=== PATIENT | female | born 1970 | race Caucasian/White ===

== ENCOUNTER → 2018-02-11 14:30 | Outpatient (CLI) | payer OTHER, SELFPAY ==
[2018-02-17 16:08] LABS: HPV Reflexed? NOT INDICATED
== END ==
PROVIDERS: Visit Provider Obstetrics & Gynecology
DX: Z12.4 Encounter for screening for malignant neoplasm of cervix (principal)
CPT/HCPCS: 88175; G0145

== ENCOUNTER → 2018-02-21 13:57 | Outpatient (CLI) | payer OTHER, SELFPAY ==
[2015-03-20 11:36] VITALS: BMI 22.7
--- NOTE | 2018-02-21 14:01 | BI_ITS ---
MAMMOGRAPHY - BILATERAL DIAGNOSTIC REASON FOR EXAM: Female, 47 years old. Palpable abnormality at the 2:00 position of the left breast PERTINENT HISTORY: Non-contributory. TECHNIQUE: Digital bilateral breast lida (3D mammographic acquisition) in the CC and MLO projections. 2-D mediolateral oblique (MLO) and craniocaudad (CC) views of both breasts were obtained. CAD: Full Field Digital Mammography with Computer Added Detection was performed. COMPARISON: Comparison is made with prior study dated January 26, 2017. FINDINGS: Breast Composition: The breasts are extremely dense, which lowers the sensitivity of mammography. There is a 2.2 cm x 2.5 cm nodular density in the upper lateral portion of the left breast. This corresponds with palpable abnormality. I also suspect a 3 cm x 2.1 cm nodular density in the upper lateral aspect of the right breast. Prior sonogram demonstrated this to be a cyst. No other significant abnormalities are identified. BI/DIAG MAMM W/CAD, BILAT IMPRESSION: The papillary abnormality in the left breast corresponds to a 2.2 cm x 2.5 cm nodular density. Correlation with ultrasound is recommended. ASSESSMENT CATEGORY: BIRADS Category 0: Incomplete. Need additional imaging evaluation. A letter regarding these results will be sent to the patient by the facility within 30 days. Approximately 10% of breast cancers are not detected by mammography. A normal mammogram should not delay biopsy of a clinically suspicious abnormality. Electronically Signed: Bridger Garcia MD at 11:24 EST Tel [phone], Service support ,
--- NOTE | 2018-02-21 14:03 | US_ITS ---
STUDY: ULTRASOUND BREAST - LEFT REASON FOR EXAM: Female, 47 years old. Palpable lump left breast. TECHNIQUE: Axial and longitudinal images of the LEFT breast were performed with a high resolution ultrasound transducer. COMPARISON: Comparison is made with prior mammogram done earlier in the day. FINDINGS: LEFT Breast: At the 2:00 position of the breast at 3 cm from the nipple, there is a 2.5 cm x 2.3 cm x 1.1 cm cyst. Adjacent to this, there is also evidence of a 0.5 cm x 0.5 cm x 0.5 cm cyst. US/Breast Limited Unilateral IMPRESSION: 2.5 cm x 2.3 cm x 1.1 cm cyst is present at the 2:00 position of the breast at 3 cm from nipple. This corresponds to the palpable abnormality. ASSESSMENT CATEGORY: BIRADS Category 2: Benign. A letter regarding these results will be sent to the patient by the facility within 30 days. Electronically Signed: Bridger Garcia MD at 11:16 EST Tel [phone], Service support ,
== END ==
PROVIDERS: Family Provider Family Medicine; PCP Family Medicine; Referring Provider Obstetrics & Gynecology; Visit Provider Obstetrics & Gynecology
DX: N63.21 Unspecified lump in the left breast, upper outer quadrant (principal); N63.10 Unspecified lump in the right breast, unspecified quadrant; R92.2 Inconclusive mammogram
CPT/HCPCS: 76642; 77062; 77066; G0279

== ENCOUNTER → 2019-02-17 10:07 | Outpatient (CLI) | payer OTHER, SELFPAY ==
[2015-03-20 11:36] VITALS: BMI 22.7
[2019-02-21 03:07] LABS: Age Gdln ACOG Testing 30-65 (.)
[2019-02-21 15:46] LABS: HPV APTIMA, High Risk Negative (Negative); HPV Reflexed? YES, CHARGE PATIENT
== END ==
PROVIDERS: Visit Provider Obstetrics & Gynecology
DX: Z11.4 Encounter for screening for human immunodeficiency virus [HIV] (principal)
CPT/HCPCS: 87624; 88175; G0145

== ENCOUNTER → 2019-03-03 09:21 | Outpatient (CLI) | payer OTHER, SELFPAY ==
[2015-03-20 11:36] VITALS: BMI 22.7
--- NOTE | 2019-03-03 09:35 | BI_ITS ---
MAMMOGRAPHY - BILATERAL DIAGNOSTIC REASON FOR EXAM: Female, 48 years old. Right breast lump. PERTINENT HISTORY: Non-contributory. TECHNIQUE: Digital bilateral breast lida (3D mammographic acquisition) in the CC and MLO projections. 2-D mediolateral oblique (MLO) and craniocaudad (CC) views of both breasts were obtained. CAD: Full Field Digital Mammography with Computer Added Detection was performed. COMPARISON: Comparison is made with prior examination dated February 21, 2018. FINDINGS: Breast Composition: The breasts are extremely dense, which lowers the sensitivity of mammography. There are no dominant masses or suspicious calcifications. The palpable abnormality corresponds to a 3.7 cm x 3 cm well-defined nodule in the retroareolar region of the right breast. This also evidence of a 3.3 cm x 1.8 cm well-defined nodule in the upper outer aspect of the left breast. These have slightly increased in size as compared to prior study. Correlation with ultrasound is recommended. No other significant abnormalities are identified. BI/DIAG MAMM W/CAD, BILAT IMPRESSION: Bilateral breast nodules as described. Correlation with ultrasound is recommended. ASSESSMENT CATEGORY: BIRADS Category 0: Incomplete. Need additional imaging evaluation. A letter regarding these results will be sent to the patient by the facility within 30 days. Approximately 10% of breast cancers are not detected by mammography. A normal mammogram should not delay biopsy of a clinically suspicious abnormality. Pending Final Proof Editing
--- NOTE | 2019-03-03 10:23 | US_ITS ---
STUDY: ULTRASOUND BREAST - RIGHT REASON FOR EXAM: Female, 48 years old. Palpable lump in the right breast. TECHNIQUE: Axial and longitudinal images of the RIGHT breast were performed with a high resolution ultrasound transducer. # OF IMAGES: 33 COMPARISON: Comparison is made with prior mammogram done earlier today. FINDINGS: RIGHT Breast: The palpable abnormality corresponds to a 5 cm x 4.9 cm x 1.5 cm cyst. This is at the 10:00 position of the breast at 2 cm from the nipple. Multiple smaller cysts are also seen scattered throughout the breast. US/Breast Limited Unilateral IMPRESSION: The palpable abnormality corresponds to a 5 cm x 4.9 cm x 1.5 cm cyst. Multiple smaller cysts are seen throughout the breast as well. ASSESSMENT CATEGORY: BIRADS Category 2: Benign. A letter regarding these results will be sent to the patient by the facility within 30 days. Electronically Signed: Bridger Garcia, at 15:33 EST , Service support ,
== END ==
PROVIDERS: Family Provider Family Medicine; PCP Family Medicine; Referring Provider Obstetrics & Gynecology; Visit Provider Obstetrics & Gynecology
DX: N63.10 Unspecified lump in the right breast, unspecified quadrant (principal)
CPT/HCPCS: 76642; 77062; 77066; G0279

== ENCOUNTER → 2019-11-17 09:13 | Outpatient (CLI) | payer OTHER, SELFPAY ==
[2019-11-09 14:58] VITALS: BMI 22.7
--- NOTE | 2019-11-17 09:13 | BI_ITS ---
MAMMOGRAPHY - BILATERAL DIAGNOSTIC REASON FOR EXAM: Female, 48 years old. Right breast pain. Multiple cysts. PERTINENT HISTORY: Non-contributory. TECHNIQUE: Digital bilateral breast lida (3D mammographic acquisition) in the CC and MLO projections. 2-D mediolateral oblique (MLO) and craniocaudad (CC) views of both breasts were obtained. CAD: Full Field Digital Mammography with Computer Added Detection was performed. COMPARISON: Comparison is made with prior examination dated 03/03/2019 and 02/21/2018. FINDINGS: Breast Composition: The breasts are extremely dense, which lowers the sensitivity of mammography. Once again, dominant nodular densities are seen in both breasts. These have increased in size since prior study. There is a dominant retroareolar nodule in the right breast measuring 5.2 cm x 4.7 cm. Correlation with ultrasound is recommended. No other significant abnormalities are identified. BI/DIAG MAMM W/CAD, BILAT IMPRESSION: Increasing bilateral breast nodules more prominent on the right side as described. Correlation with ultrasound of both breasts is recommended for further evaluation. ASSESSMENT CATEGORY: BIRADS Category 0: Incomplete. Need additional imaging evaluation. A letter regarding these results will be sent to the patient by the facility within 30 days. Approximately 10% of breast cancers are not detected by mammography. A normal mammogram should not delay biopsy of a clinically suspicious abnormality. Electronically Signed: Bridger Garcia, at 14:00 EDT , Service support ,
--- NOTE | 2019-11-17 09:13 | US_ITS ---
STUDY: ULTRASOUND BREAST - RIGHT REASON FOR EXAM: Female, 48 years old. Palpable lump in the right breast. TECHNIQUE: Axial and longitudinal images of the RIGHT breast were performed with a high resolution ultrasound transducer. # OF IMAGES: 61 COMPARISON: Comparison is made with prior mammograms in earlier in the day and prior sonogram of the right breast dated 03/03/2019. FINDINGS: RIGHT Breast: Once again, multiple benign cysts are seen throughout the right breast. The largest cyst is at the 10 o''clock position of the breast at 2 cm from nipple and measures 5.5 cm x 4.3 cm x 1.7 cm. IMPRESSION: Multiple cysts. Mild increase in size of the dominant cyst at the 10 o''clock position of the breast at 2 cm from the nipple. ASSESSMENT CATEGORY: BIRADS Category 2: Benign. A letter regarding these results will be sent to the patient by the facility within 30 days. Electronically Signed: Bridger Garcia, at 10:53 EDT , Service support , STUDY: ULTRASOUND BREAST - LEFT REASON FOR EXAM: Female, 48 years old. Palpable lump left breast. TECHNIQUE: Axial and longitudinal images of the LEFT breast were performed with a high resolution ultrasound transducer. # OF IMAGES: 61 COMPARISON: Comparison is made with prior ultrasound of the left breast dated 02/21/2018 and prior mammogram done earlier today. FINDINGS: LEFT Breast: Once again, multiple cysts are seen. The largest cyst is at the 1 o''clock position of the breast at 2 cm from the nipple and measures 3.1 cm x 2.9 cm x 1.3 cm. US/Breast Limited Unilateral IMPRESSION: Multiple breast cysts. The largest cyst is at the 1 o''clock position breast at 2 cm from nipple. This has increased slightly in size as compared to prior study. ASSESSMENT CATEGORY: BIRADS Category 2: Benign. A letter regarding these results will be sent to the patient by the facility within 30 days. Electronically Signed: Bridger Garcia, at 10:54 EDT , Service support ,
== END ==
PROVIDERS: PCP Family Medicine; Referring Provider Obstetrics & Gynecology; Visit Provider Obstetrics & Gynecology
DX: N63.10 Unspecified lump in the right breast, unspecified quadrant (principal); N63.20 Unspecified lump in the left breast, unspecified quadrant; N60.01 Solitary cyst of right breast
CPT/HCPCS: 76642; 77062; 77066; G0279

== ENCOUNTER → 2020-05-03 | Outpatient (CLI) | payer OTHER, SELFPAY ==
[2020-05-03 11:33] VITALS: BMI 24.8
[2020-05-09 10:50] LABS: HPV APTIMA, High Risk Negative (Negative)
== END | disposition home or self-care (01) ==
LOC: LABSPEC 16:27
PROVIDERS: PCP Family Medicine; Referring Provider Obstetrics & Gynecology; Visit Provider Obstetrics & Gynecology
DX: Z12.4 Encounter for screening for malignant neoplasm of cervix (principal)
CPT/HCPCS: 87624; 88175; G0145

== ENCOUNTER → 2020-05-10 07:24 | Outpatient (CLI) | payer OTHER, SELFPAY ==
[2020-05-03 11:33] VITALS: BMI 24.8
--- NOTE | 2020-05-10 07:52 | US_ITS ---
STUDY: ULTRASOUND BREAST - RIGHT REASON FOR EXAM: Female, 49 years old. Bilateral breast cysts. TECHNIQUE: Axial and longitudinal images of the RIGHT breast were performed with a high resolution ultrasound transducer. # OF IMAGES: 100 COMPARISON: Comparison is made with prior ultrasound the right breast dated 11/17/2019. FINDINGS: RIGHT Breast: Once again, multiple cysts are seen in the retroareolar region of the breast. A dominant cyst measuring 4.1 cm by 4.4 cm x 1.8 cm is seen. This has decreased slightly in size as compared to prior study. IMPRESSION: Multiple breast cysts. ASSESSMENT CATEGORY: BIRADS Category 2: Benign. A letter regarding these results will be sent to the patient by the facility within 30 days. Electronically Signed: Bridger Garcia MD at 14:30 EDT , Service support , STUDY: ULTRASOUND BREAST - LEFT REASON FOR EXAM: Female, 49 years old. Multiple breast cysts. TECHNIQUE: Axial and longitudinal images of the LEFT breast were performed with a high resolution ultrasound transducer. # OF IMAGES: 100 COMPARISON: Comparison is made with prior sonogram dated 11/17/2019. FINDINGS: LEFT Breast: Once again, multiple cysts are seen. The largest measures 3.2 cm x 2.6 cm x 1.5 cm. This is at the 2 o''clock position of the breast at 2 cm from nipple. This is essentially unchanged. US/Breast Limited Unilateral IMPRESSION: Stable breast cysts. ASSESSMENT CATEGORY: BIRADS Category 2: Benign. A letter regarding these results will be sent to the patient by the facility within 30 days. Electronically Signed: Bridger Garcia MD at 14:30 EDT , Service support ,
[2020-05-10 09:19] LABS: Cholesterol 208 mg/dL (200); Glucose 90 mg/dL (74-106); High Density Lipoprotein 84 mg/dL; Thyroid Stim Hormone (TSH) 7.75 uIU/mL (0.358-3.74); Triglycerides 85 mg/dL; Very Low Density Lipoprotein 17 mg/dL (5-40)
[2020-05-10 09:24] LABS: Vitamin D,25 Hydroxy 44.3 ng/mL
== END ==
PROVIDERS: PCP Family Medicine; Referring Provider Obstetrics & Gynecology; Visit Provider Obstetrics & Gynecology
DX: Z01.411 Encounter for gynecological examination (general) (routine) with abnormal findings (principal); N60.12 Diffuse cystic mastopathy of left breast; N60.11 Diffuse cystic mastopathy of right breast; N60.02 Solitary cyst of left breast; N60.01 Solitary cyst of right breast
CPT/HCPCS: 36415; 76642; 80061; 82306; 82947; 84443

== ENCOUNTER 2021-05-14 08:56 | Outpatient (CLI) | payer OTHER, SELFPAY ==
--- NOTE | 2021-05-14 09:03 | US_ITS ---
STUDY: ULTRASOUND BREAST - RIGHT REASON FOR EXAM: Female, 50 years old. History of breast cysts. TECHNIQUE: Axial and longitudinal images of the RIGHT breast were performed with a high resolution ultrasound transducer. # OF IMAGES: 105 COMPARISON: Comparison is made with prior mammogram done earlier today as well as prior sonogram dated 05/10/2020. FINDINGS: RIGHT Breast: Once again, multiple cysts are seen in the right breast. The largest cyst measures 4.2 cm x 4.9 cm x 2.8 cm. This is at the 10 o''clock position of the breast at 3 cm from the nipple. IMPRESSION: Multiple breast cysts. ASSESSMENT CATEGORY: BIRADS Category 2: Benign. A letter regarding these results will be sent to the patient by the facility within 30 days. Electronically Signed: Bridger Garcia MD at 12:28 EDT , STUDY: ULTRASOUND BREAST - LEFT REASON FOR EXAM: Female, 50 years old. Breast cysts TECHNIQUE: Axial and longitudinal images of the LEFT breast were performed with a high resolution ultrasound transducer. # OF IMAGES: 105 COMPARISON: Comparison is made with prior mammogram done earlier today as well as prior sonogram of the left breast dated 05/10/2020. FINDINGS: LEFT Breast: Multiple cysts are once again seen. The largest cyst measures 3.4 cm x 3.1 cm x 2 cm. This is at the 2 o''clock position breast at 3 cm from the nipple. US/Breast Complete Bilateral IMPRESSION: Multiple cysts are seen in the left breast. ASSESSMENT CATEGORY: BIRADS Category 2: Benign. A letter regarding these results will be sent to the patient by the facility within 30 days. Electronically Signed: Bridger Garcia MD at 12:29 EDT ,
--- NOTE | 2021-05-14 09:04 | BI_ITS ---
MAMMOGRAPHY - BILATERAL DIAGNOSTIC REASON FOR EXAM: Female, 50 years old. Bilateral breast lumps. PERTINENT HISTORY: Non-contributory. TECHNIQUE: Digital bilateral breast lida (3D mammographic acquisition) in the CC and MLO projections. 2-D mediolateral oblique (MLO) and craniocaudad (CC) views of both breasts were obtained. CAD: Full Field Digital Mammography with Computer Added Detection was performed. COMPARISON: Comparison is made with prior examination dated 11/17/2019 and 03/03/2019. FINDINGS: Breast Composition: The breasts are extremely dense, which lowers the sensitivity of mammography. Once again, there are bilateral breast nodules more prominent in the right breast. The previously seen well-defined nodular density in the left breast has increased in size. Correlation with ultrasound is recommended. No cluster microcalcification is seen. No other significant abnormalities are identified. BI/DIAG MAMM W/CAD, BILAT IMPRESSION: Bilateral breast nodules with increase size in the left breast. Correlation with ultrasound is recommended. ASSESSMENT CATEGORY: BIRADS Category 0: Incomplete. Need additional imaging evaluation. A letter regarding these results will be sent to the patient by the facility within 30 days. Approximately 10% of breast cancers are not detected by mammography. A normal mammogram should not delay biopsy of a clinically suspicious abnormality. Electronically Signed: Bridger Garcia MD at 10:20 EDT ,
== END 2021-05-14 23:59 | disposition home or self-care (01) ==
PROVIDERS: PCP Family Medicine; Visit Provider Obstetrics & Gynecology
DX: N60.11 Diffuse cystic mastopathy of right breast (principal); N60.12 Diffuse cystic mastopathy of left breast; R92.8 Other abnormal and inconclusive findings on diagnostic imaging of breast
CPT/HCPCS: 76641; 77062; 77066; G0279

== ENCOUNTER → 2022-05-22 | Outpatient (CLI) | payer OTHER, SELFPAY ==
--- NOTE | 2022-05-22 13:54 | US_ITS ---
STUDY: ULTRASOUND BREAST - RIGHT REASON FOR EXAM: Female, 51 years old. Palpable lumps in both breasts. TECHNIQUE: Axial and longitudinal images of the RIGHT breast were performed with a high resolution ultrasound transducer. # OF IMAGES: 57 COMPARISON: Comparison is made with prior mammogram done earlier in the day and prior sonogram dated May 14, 2021. FINDINGS: RIGHT Breast: The upper outer quadrant of the right breast was examined by ultrasound. Multiple cysts are seen. The largest cyst measures 3.6 cm x 4 cm x 2.5 cm. This is at the 10:00 position of the breast at 2 cm from the nipple. There is also evidence of a 2 cm x 2 cm x 1.4 cm cyst with low level debris along its dependent portion of the plantar position the breast at 1 cm from nipple. IMPRESSION: Multiple cysts. The dominant cyst as decrease in size as compared to prior study. ASSESSMENT CATEGORY: BIRADS Category 2: Benign. A letter regarding these results will be sent to the patient by the facility within 30 days. Electronically Signed: Bridger Garcia MD at 15:11 EDT , STUDY: ULTRASOUND BREAST - LEFT REASON FOR EXAM: Female, 51 years old. Palpable lumps in the axillary region. TECHNIQUE: Axial and longitudinal images of the LEFT breast were performed with a high resolution ultrasound transducer. # OF IMAGES: 57 COMPARISON: Comparison is made with prior sonogram dated May 14, 2021 and prior sonogram done earlier today. FINDINGS: LEFT Breast: Multiple cysts are seen in the upper outer quadrant. The largest cyst measures 1.8 cm x 1.6 cm x 1.3 cm. This is at the 2:00 position of the breast at 1 cm from the nipple. This has decreased in size as compared to prior study. US/Breast Limited Unilateral IMPRESSION: Cysts are seen in the upper-outer quadrant of the left breast. The largest cyst measures 1.8 cm x 1.6 cm x 1.3 cm. This has decreased in size as compared to prior study. ASSESSMENT CATEGORY: BIRADS Category 2: Benign. A letter regarding these results will be sent to the patient by the facility within 30 days. Electronically Signed: Bridger Garcia MD at 15:13 EDT ,
--- NOTE | 2022-05-22 13:54 | BI_ITS ---
MAMMOGRAPHY - BILATERAL DIAGNOSTIC REASON FOR EXAM: Female, 51 years old. Bilateral breast lumps. PERTINENT HISTORY: Non-contributory. Past history of melanoma of the lower extremity. TECHNIQUE: Digital bilateral breast lida (3D mammographic acquisition) in the CC and MLO projections. 2-D mediolateral oblique (MLO) and craniocaudad (CC) views of both breasts were obtained. CAD: Full Field Digital Mammography with Computer Added Detection was performed. COMPARISON: Comparison is made with prior mammogram dated May 14, 2021 and November 17, 2019. FINDINGS: Breast Composition: The breasts are extremely dense, which lowers the sensitivity of mammography. Once again, bilateral breast nodules are seen in both upper outer quadrants of the breasts more prominent on the right side. Targeted ultrasound correlation is recommended. No other significant abnormalities are identified. BI/DIAG MAMM W/CAD, BILAT IMPRESSION: Bilateral breast nodules seen in both upper lateral quadrant of the breasts. Correlation with ultrasound is recommended. ASSESSMENT CATEGORY: BIRADS Category 0: Incomplete. Need additional imaging evaluation. A letter regarding these results will be sent to the patient by the facility within 30 days. Approximately 10% of breast cancers are not detected by mammography. A normal mammogram should not delay biopsy of a clinically suspicious abnormality. Electronically Signed: Bridger Garcia MD at 14:59 EDT ,
== END | disposition home or self-care (01) ==
PROVIDERS: PCP Family Medicine; Visit Provider Advanced Practice Midwife
DX: N63.25 Unspecified lump in the left breast, overlapping quadrants (principal); N63.21 Unspecified lump in the left breast, upper outer quadrant; N60.11 Diffuse cystic mastopathy of right breast; N60.12 Diffuse cystic mastopathy of left breast
CPT/HCPCS: 76642; 77062; 77066; G0279

== ENCOUNTER → 2022-06-09 | Outpatient (CLI) | payer OTHER, SELFPAY ==
[2022-06-09 11:24] LABS: Absolute Lymphocyte Count 1.49 X10^3/uL (0.83-4.51); Absolute Neutrophil Count 4.7 X10^3/uL (2.0-7.7); Basophil# 0.05 X10^3/uL; Basophil% 0.7 % (0-1); Eosinophil# 0.17 X10^3/uL; Eosinophils% 2.5 % (0-5); Hematocrit 43.7 % (37-47); Hemoglobin 14.1 g/dL (12.0-15.0); Lymphocyte # 1.49 X10^3/ul (0.83-4.51); Mean Corp Hgb Conc 32.3 g/dL (32-36); Mean Corpuscular Hgb 29.9 pg (27.0-32.0); Mean Corpuscular Volume 92.8 fL (81-99); Mean Platelet Vol. 10.4 fl (6.2-12.0); Monocyte# 0.36 X10^3/uL; Monocyte% 5.3 % (0-10); NRBC Flagged by Analyzer 0 % (0-5); Neutrophil # 4.67 X10^3/uL (2.7-7.7); Neutrophil % 69.1 % (47-70); Platelet Count 271 K/mm3 (150-450); RBC Distribution Width CV 13.3 % (11.6-14.6); RBC Distribution Width SD 45.8 fl (35.1-43.9); Red Blood Count 4.71 M/mm3 (4.2-5.4); White Blood Count 6.8 K/mm3 (4.4-11.0)
[2022-06-09 12:09] LABS: ALB/GLOB Ratio 1.1 RATIO (0.9-2.4); AST(SGOT) 16 U/L (15-37); Alanine Aminotransfer ALT/SGPT 20 U/L (13-56); Albumin, Serum 3.7 g/dL (3.2-5.0); Alkaline Phosphatase 51 U/L (45-117); Anion Gap 2 (5-15); BUN 15 mg/dL (7-18); BUN/Creat Ratio 22.3 RATIO (10-20); Calcium,Total 8.6 mg/dL (8.5-10.1); Chloride 108 mmol/L (98-107); Cholesterol 200 mg/dL (200); Creatinine, Serum 0.67 mg/dL (0.55-1.02); EST Glomerular Filtration Rate 98 mL/min (>60); Est Glom Filt Rate - Afr Amer 119 mL/min (>60); Globulin 3.5 g/dL (2.2-4.2); Glucose 94 mg/dL (74-106); High Density Lipoprotein 69 mg/dL; Protein, Total 7.2 g/dL (6.4-8.2); Sodium Level 136 mmol/L (136-145); Thyroid Stim Hormone (TSH) 5.26 uIU/mL (0.358-3.74); Triglycerides 75 mg/dL; Very Low Density Lipoprotein 15 mg/dL (5-40)
== END | disposition home or self-care (01) ==
LOC: LAB 09:46
PROVIDERS: PCP Family Medicine; Referring Provider Advanced Practice Midwife; Visit Provider Advanced Practice Midwife
DX: Z01.419 Encounter for gynecological examination (general) (routine) without abnormal findings (principal); Z13.1 Encounter for screening for diabetes mellitus; Z13.29 Encounter for screening for other suspected endocrine disorder
CPT/HCPCS: 36415; 80053; 80061; 84443; 85025

== ENCOUNTER → 2023-06-04 | Outpatient (CLI) | payer OTHER, SELFPAY ==
--- NOTE | 2023-06-04 09:38 | BI_ITS ---
MAMMOGRAPHY - BILATERAL SCREENING REASON FOR EXAM: Female, 52 years old. Routine annual screening examination. PERTINENT HISTORY: Non-contributory. TECHNIQUE: Digital bilateral breast maddy (3D mammographic acquisition) in the CC and MLO projections. 2-D mediolateral oblique (MLO) and craniocaudad (CC) views of both breasts were obtained. CAD: Full Field Digital Mammography with Computer Added Detection was performed. COMPARISON: Comparison is made with prior study dated May 14, 2021 and May 22, 2022. FINDINGS: Breast Composition: The breasts are extremely dense, which lowers the sensitivity of mammography. Once again, there are bilateral well-defined breast nodules more prominent in the upper lateral aspect of the left breast. These were demonstrated to be cysts on prior sonogram. The largest nodule in the right breast measures 2.5 cm x 3.1 cm. No other significant abnormalities are identified. There has been no significant change since the prior study. BI/SCRN MAMM (CAD)W/MADDY BILAT IMPRESSION: Stable bilateral screening mammogram. Yearly follow-up mammogram recommended. (A) ASSESSMENT CATEGORY: BIRADS Category 2: Benign. A letter regarding these results will be sent to the patient by the facility within 30 days. Approximately 10% of breast cancers are not detected by mammography. A normal mammogram should not delay biopsy of a clinically suspicious abnormality. [id number] Electronically Signed: Bridger Garcia MD at 11:07 EDT ,
== END | disposition home or self-care (01) ==
LOC: OPBI 09:37
PROVIDERS: PCP Family Medicine; Referring Provider Advanced Practice Midwife; Visit Provider Advanced Practice Midwife
DX: Z12.31 Encounter for screening mammogram for malignant neoplasm of breast (principal)
CPT/HCPCS: 77063; 77067

== ENCOUNTER → 2023-07-16 | Outpatient (CLI) | payer OTHER, SELFPAY ==
--- NOTE | 2023-07-16 09:22 | US_ITS ---
STUDY: ULTRASOUND BREAST - RIGHT REASON FOR EXAM: Female, 52 years old. Palpable mass TECHNIQUE: Axial and longitudinal images of the RIGHT breast were performed with a high resolution ultrasound transducer. # OF IMAGES: 29 COMPARISON: Screening mammogram 06/04/2023 FINDINGS: RIGHT Breast: Heterogeneous background echotexture. At 9:00 in the area of the palpable abnormality, ultrasound confirmed dense breast parenchyma containing multiple cysts of varying sizes consistent with fibrocystic change. Individual cysts measure 0.7 cm, 1.6 cm, 4.3 cm, and 1.3 cm.: US/Breast Limited Unilateral IMPRESSION: Ultrasound confirms fibrocystic change with multiple cysts measuring up to 4.3 cm in diameter. ASSESSMENT CATEGORY: BIRADS Category 2: Benign. A letter regarding these results will be sent to the patient by the facility within 30 days. Electronically Signed: Francis Peng MD at 10:05 EDT ,
== END | disposition home or self-care (01) ==
LOC: OPUS 09:18
PROVIDERS: PCP Family Medicine; Referring Provider Nurse Practitioner Family; Visit Provider Nurse Practitioner Family
DX: N63.15 Unspecified lump in the right breast, overlapping quadrants (principal)
CPT/HCPCS: 76642

== ENCOUNTER → 2024-05-03 | Outpatient (CLI) | payer OTHER, SELFPAY ==
[2024-05-03 13:03] LABS: Estradiol 63.8 pg/mL; Free T3 2.7 pg/mL (2.18-3.98); Luteinizing Hormone 54.4 mIU/mL; Vitamin B12 563 pg/mL (180-914)
[2024-05-06 21:12] LABS: HPV APTIMA, High Risk Negative (Negative)
== END | disposition home or self-care (01) ==
LOC: BWCLAB 08:46
PROVIDERS: PCP Family Medicine; Referring Provider Obstetrics & Gynecology; Visit Provider Obstetrics & Gynecology
DX: Z12.4 Encounter for screening for malignant neoplasm of cervix (principal); N95.0 Postmenopausal bleeding; R41.3 Other amnesia
CPT/HCPCS: 36415; 82607; 82670; 83001; 83002; 84443; 84481; 87624; 88175; G0145

== ENCOUNTER → 2024-05-09 | Outpatient (CLI) | payer OTHER, SELFPAY ==
--- NOTE | 2024-05-09 08:57 | US_ITS ---
PROCEDURE: THYROID (USTHY), 05/09/2024 REASON FOR EXAM: ABNORMAL LAB AND ENLARGED THYROID TECHNIQUE: Grayscale and color Doppler imaging of the thyroid was performed. COMPARISON: None FINDINGS: Right lobe measures 4.8 x 2.0 x 1.6cm. Heterogeneousechotexture. Hypervascularity noted. No convincing/discrete nodules are identified, although evaluation is challenging due to the extent of background heterogeneity. Left lobe measures 4.1 x 1.5 x 1.3 cm. Heterogeneous echotexture. Hypervascularity noted. No convincing/discrete nodules are identified, although evaluation is again challenging due to the extent of background heterogeneity. Isthmus measures 2 mm in thickness. US/Thyroid IMPRESSION: 1. Normal-size but heterogeneous and hypervascular gland. Correlate for clinic al evidence of thyroiditis or perhaps Graves disease. 2. No convincing/discrete nodules are identified although evaluation is challen ging due to the extensive background heterogeneity. Reading Location: [id number]
--- NOTE | 2024-05-09 08:57 | US_ITS ---
EXAM: BILATERAL DIAGNOSTIC MAMMOGRAM WITH CAD, TARGETED RIGHT BREAST ULTRASOUND CLINICAL HISTORY: 53-year-old female presents for clinician area of interest in the right breast, breast cyst enlarging, notes is getting bigger, it is also time for the patient's annual screening mammogram. No family history of breast cancer. COMPARISON: Mammogram , 05/22/2022, 05/14/2021. Ultrasounds 05/22/2022, 05/14/2021. TECHNIQUE: Bilateral screening digital breast tomosynthesis with C-View and 2D FFDM. Computer aided detection. Also, targeted right breast ultrasound was performed. FINDINGS: MAMMOGRAM: The breasts are extremely dense which lowers the sensitivity of mammography. The mammogram demonstrates that the patient has dense breasts. Supplemental screening with whole breast ultrasound or MRI may be considered for further evaluation. There is a triangle skin marker indicating the area of palpable concern in the upper-outer right breast at middle depth. Underlying the skin marker is a large circumscribed mass. Otherwise, there are multiple bilateral circumscribed masses in both breast, most consistent with cysts. There is a group of fine pleomorphic calcifications in the upper central right breast at middle/posterior depth, which have increased in number compared to priors. There are no suspicious findings in the left breast. ULTRASOUND: Targeted right breast ultrasound performed of the area of palpable concern/area of clinician interest demonstrates a large complicated cyst with internal debris at 9 o'clock 2 cm from the nipple, measuring 4.1 x 3.0 x 2.0 cm. This has increased in size when compared to prior examination of 2022. Also, there is an adjacent complicated cyst in the right breast at 9 o'clock 7 cm from the nipple measuring 1.3 x 1.2 x 1.1 cm. There is a another mildly complicated cyst in the right breast at 10 o'clock 1 cm from the nipple measuring 1.5 x 1.4 x 1.1 cm. US/Breast Limited Unilateral IMPRESSION: 1. Suspicious calcifications in the upper central right breast requires furthe r evaluation. Recommend tissue sampling with stereotactic/tomosynthesis guided core needle biopsy. 2. The area of palpable concern in the right breast correlates to a benign com plicated cyst, which is waxing and waning when compared to prior examination as of 2022 in 2021. There are other complicated benign cysts in the right breast. 3. There is no evidence of malignancy in the left breast. ASSESSMENT: BIRADS 4 SUSPICIOUS ABNORMALITY RECOMMENDATION: 1: STEREOTACTIC/TOMOSYNTHESIS GUIDED CORE NEEDLE BIOPSY Right Reading Location: [facility] [place] [place]
== END | disposition home or self-care (01) ==
PROVIDERS: PCP Family Medicine; Referring Provider Obstetrics & Gynecology; Visit Provider Obstetrics & Gynecology
DX: N60.01 Solitary cyst of right breast (principal); E04.9 Nontoxic goiter, unspecified
CPT/HCPCS: 76536; 76642; 77062; 77066; G0279

== ENCOUNTER → 2024-05-11 | Outpatient (CLI) | payer OTHER, SELFPAY ==
--- NOTE | 2024-05-11 15:13 | US_ITS ---
PROCEDURE: PELVIC W/ TRANSVAGINAL 05/11/2024 REASON FOR EXAM: 53-year-old female, postmenopausal bleeding. TECHNIQUE: Transabdominal pelvic ultrasound COMPARISON: None. FINDINGS: Measurements: Uterus: 7.0 x 4.9 x 4.9 cm with a volume of 87.5 mL Endometrial Thickness: 0.3 cm Right Ovary: 3.3 x 2.3 x 1.7 cm with a volume of 5.3 mL. Left Ovary: 2.0 x 1.1 x 0.9 cm with a volume of 1.8 mL. Uterus: Retroverted, normal in size with several small intramural uterine fibroids. The largest measures 0.9 x 0.8 x 0.5 cm. Endometrium: Unremarkable. Right ovary: Two physiologic right ovarian follicles, the larger of which demonstrates a small, probable intramural nodule with blood flow seen on color Doppler interrogation. This follicle measures 1.8 x 1.8 x 1.4 cm, with the nodule measuring 0.2 x 0.1 cm. Left ovary: Normal size and echotexture. Other: The urinary bladder is distended and unremarkable. Trace free pelvic fluid, within normal physiologic limits. US/Pelvic w/ Transvaginal IMPRESSION: 1. Physiologic right ovarian follicles, one demonstrating a small, probable int ramural nodule. Follow-up pelvic ultrasound in 3-6 months is recommended to evaluate for stability/resolution. 2. Normal-sized uterus with several small intramural fibroids. Reading Location: [id number]
== END | disposition home or self-care (01) ==
PROVIDERS: PCP Family Medicine; Referring Provider Obstetrics & Gynecology; Visit Provider Obstetrics & Gynecology
DX: N95.0 Postmenopausal bleeding (principal)
CPT/HCPCS: 76830; 76856

== ENCOUNTER 2024-06-01 11:31 | Outpatient (CLI) | payer OTHER, SELFPAY ==
--- NOTE | 2024-06-01 12:18 | BRBX_PTH ---
PATIENT: JUN MEADOWS LOC: [facility] U#:[id number] AGE/SX: 53/F ROOM: RE06/01/[address]: Dr. Elizabeth Hernandez MD : 1970 BED: DIS: 06/01/2024 SPEC #: [id number] RECD: 06/01/24 13:56 STATUS: WENDY REQ #: [id number] ANDRA: 06/01/24 12:[address]: Elizabeth Hernandez DEPT: SURGICAL PATHOLOGY RECD BY: Micheal Killian ENTERED: 06/01/24 13:56 SP TYPE: BREAST BX OTHR DR: Dr. Theresa Walden MD Tissues: A - Right breast, NOS Procedures: Surgery Specimen Level IV HEADER OPERATION: Right breast stereotactic biopsy PRE-OP DIAGNOSIS: Group of fine pleomorphic calcifications in upper central right breast at middle / posterior depth TISSUE SUBMITTED: A- Right breast core tissue / deep central Ischemic Time: 1 minute Fixation Time: 8 hours MICROSCOPIC DIAGNOSIS A. Right breast, pleomorphic calcifications in upper central right, middle/posterior depth, biopsy: * Focal atypical ductal hyperplasia * Intraductal papilloma * Columnar cell change with associated microcalcifications * Apocrine metaplasia with associated microcalcifications * Microcysts MICROSCOPIC DESCRIPTION Slides are reviewed. GROSS DESCRIPTION A. Received in formalin in a container labeled with the patient's name, date of , and with no further designation are 6 lockwood-yellow core biopsies of fibrofatty tissue ranging from 1.0 x 0.3 cm to 2.0 x 0.5 cm. There are multiple lockwood-yellow core biopsy fragments measuring 1.7 x 1.5 x 0.3 cm in aggregate. Submitted in toto as follows:A1-3. 2 cores per cassetteA4. Core biopsy fragments Total formalin fixation time: Between 6 and 72 hours. [facility] 06/02/2024 CPT:28509
--- NOTE | 2024-06-01 13:33 | OP.PCM_ITS ---
Operative Report (Standard) Operative Information Date of Procedure: 06/01/24 Pre-Operative Diagnosis: Right breast microcalcifications Post-Operative Diagnosis: Same Surgery/Procedure Performed: Ultrasound-guided right breast biopsy delivery technician: No Type of Anesthesia: Local Procedure Start Time: 12:05 Procedure Stop Time: 12:17 Select all DRAINS/GRAFTS/IMPLANTS that apply: Implanted device Implanted device details: Mammotome clip Estimated Blood Loss: <10 cc Specimen collected: Yes Description of specimen(s) removed: Right breast deep central microcalcifications Description of surgery: Procedure: Right stereotactic core biopsy Indications: 53 year-old female with pleomorphic calcifications in the deep central of the right breast. Risk benefits were discussed the patient and she elected to proceed with stereotactic core biopsy with clip placement Description of procedure: Patient was brought into the mammography suite and laid prone on the stereotactic table. A timeout was completed verifying correct patient, procedure, site, specially, prior to beginning procedure. The right breast was prepped and draped in usual sterile fashion and using local anesthesia was obtained with 1% lidocaine with epi. Patient's right breast was positioned and placed into compression. Initial film showed calcifications are in the center of the compression paddle. 15? views were then taken. The calcifications were localized. The left breast was prepped draped in usual sterile fashion. An 8-gauge mammotome was set up according to the digital coordinates. The tract of the mammotome was anesthetized with local anesthesia and an incision was made with the 11 blade scalpel at the entry site. The mammotome was advanced to the prefire state. Pre-prior films were checked and verified. The mammotome was fired. Post fire films were also checked and verified. Biopsies were taken from 6:00 to 11:00. The specimen was x-rayed and a good representation of the calcifications were within the specimen. Mammotome clip was placed at the 12 o'clock position. The mammotome was removed from the breast. An additional films were taken which showed a good representation of the calcifications were removed and a clip was in place. Pressure was held for hemostasis. Once hemostasis was assured the wound was dressed with Steri-Strips and OpSite. The patient tolerated the procedure well and was discharged from the mammography suite good condition. Surgical Findings: See operative report Complications Complications: No
== END 2024-06-01 23:59 | disposition home or self-care (01) ==
PROVIDERS: PCP Family Medicine; Referring Provider Surgery; Visit Provider Surgery
DX: D24.1 Benign neoplasm of right breast (principal); N60.11 Diffuse cystic mastopathy of right breast; N60.81 Other benign mammary dysplasias of right breast
CPT/HCPCS: 19082; 19081; 88305; A4648

== ENCOUNTER 2024-06-23 06:54 | Day surgery (SDC) | payer OTHER, SELFPAY ==
[2024-06-23] VITALS (8 sets, daily range): BP systolic 114–160; BP diastolic 59–87; PULSE 65–86; RESP 16–18; TEMP 36.2–36.9; O2SAT 98–100; BMI 25.4
--- NOTE | 2024-06-23 07:12 | PCM.PRE.AN2 ---
ASA Classification* ASA Classification ASA Classification: 2 Assessment & Plan Anesthesia* Anesthesia Assessment Anesthesia Assessment: Discussed sedation and/or anesthesia options, risks, benefits, and alternatives with patient/parents/legal guardian/POA. Questions invited. The patient/parents/legal guardian/POA seems to understand and agrees to proceed with anesthesia plan. Reviewed the physical assessment, medical history, allergy history and patient home medications list prior to surgery/procedure/anesthetic and documented any changes. Performed airway and anesthesia risk assessments. Anesthesia Type Anesthesia Type: General Anesthesia Focused Assessment* Airway Assessment Mouth opens: >3 cm Mallampati Score: II Focused Labs Anesthesia Preop lab: CBC WBC 6.8 K/mm3 (4.4-11.0) 06/09/22 09:48 06/09/22 RBC 4.71 M/mm3 (4.2-5.4) 06/09/22 09:48 06/09/22 Hgb 14.1 g/dL (12.0-15.0) 06/09/22 09:48 06/09/22 Hct 43.7 % (37-47) 06/09/22 09:48 06/09/22 Plt Count 271 K/mm3 (150-450) 06/09/22 09:48 06/09/22 CHEMISTRY Potassium 4.0 mmol/L (3.5-5.1) 06/09/22 09:48 06/09/22 Sodium 136 mmol/L (136-145) 06/09/22 09:48 06/09/22 BUN 15 mg/dL (7-18) 06/09/22 09:48 06/09/22 Creatinine 0.67 mg/dL (0.55-1.02) 06/09/22 09:48 06/09/22 Glucose 94 mg/dL (74-106) 06/09/22 09:48 06/09/22 TSH 7.190 uIU/mL (0.300-4.200) H 05/03/24 08:47 05/03/24 COAG PT 13.2 SECONDS (11.7-14.9) 03/18/15 15:11 03/18/15 Urine Test Negative Negative 03/20/15 11:00 03/20/15 Pre-Assessment Diagnosis/Proposed Procedure Planned Operative Procedure(s): (R) Breast, Biopsy, Needle Localization stereo wire loc excisional breast biopsy Anesthesia History 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 When Was Last Pacemaker Check QUESTION #4 FULL TEXT: You/Your Family Experience fever (hyperthermia) with Anesthesia Last Oral Intake Last Oral intake: Last Oral Intake NPO since Meds taken in AM with sips of water? Meds patient instructed to take am of surgery PONV PONV - transit planning manager: PONV - transit planning manager Female Yes 06/15/24 14:16 HX of Motion Sickness No 06/15/24 14:16 HX of N/V After Surgery No 06/15/24 14:16 Non-Smoker Yes 06/15/24 14:16 Duration of Surgery greater No 06/15/24 14:16 than 60 minutes Number of Risk Factors 2 06/15/24 14:16 PONV Score Moderate Risk 06/15/24 14:16 Height & Weight Height & Weight: Anesthesia: Height & Weight Height 5 ft 2 in 05/12/24 14:46 Respiratory Assessment Respiratory Assessment - transit planning manager: Respiratory Tract Infection Hx - transit planning manager Hx Respiratory Tract Infection No 06/15/24 14:16 STOP Sleep Apnea STOP Sleep Apnea - transit planning manager: STOP Sleep Apnea - transit planning manager Hx Hypertension No 06/15/24 14:16 Hx Sleep Apnea No 06/15/24 14:16 CPAP No 05/01/24 08:46 BIPAP No 05/01/24 08:46 Do you snore loudly (louder No 06/15/24 14:16 than talking or can be heard Do you often feel tired/ No 06/15/24 14:16 fatigued/ sleepy during daytime? Has anyone observed you stop No 06/15/24 14:16 breathing during sleep? STOP Results Negative 06/15/24 14:16 QUESTION #5 FULL TEXT : Do you snore loudly (louder than talking or can be heard through closed doors)? 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 Specify any problems Hx of Preganancy in last 3 N/A 06/15/24 14:16 Months Nurse Filling Out Transfusion NBUCHER 06/15/24 14:16 & Questions: Date: 06/15/24 06/15/24 14:16 Time: 14:17 06/15/24 14:16 Patient unable to answer at this time (ie. confused, unrespo /Reproduction History /Reproductive History - transit planning manager: /Reproductive Hx- transit planning manager Hx Now No 06/15/24 14:16 Gestational Age (in weeks): EDC: Hx Hx Para Hx Section SAB No 06/15/24 14:16 Active Medications Active Medications: Current Medications Generic Name Dose Route Start Last Admin Trade Name Freq PRN Reason Stop Dose Admin Cefazolin Sodium 2 gm/ Sodium 110 mls @ 150 mls/hr 06/23/24 08:30 Chloride IV 06/23/24 09:13 INTRAOP ONE Lactated Ringer's 1,000 mls @ 15 mls/hr 06/23/24 07:15 IV .Q48H HEYDI PFSH Medical History Post-menopausal Wears contact lenses Wears glasses Cancer Thyroid disease Non-smoker Abnormal ultrasound of breast Abnormal mammogram of right breast Melanoma in situ Home Medications ?Medication ?Instructions ?Recorded ?Last Taken ?Type cholecalciferol (vitamin D3) 25 1,000 unit PO DAILY 03/18/15 Unknown History mcg (1,000 unit) tablet levothyroxine 75 mcg tablet 75 mcg PO QDAY #30 tabs 06/13/24 Unknown Rx Allergy/AdvReac Type Severity Reaction Status Date / Time No Known Allergies Allergy Verified 06/15/24 14:15 Family History Mother Asthma Hypertension High cholesterol Son Asthma Surgical History History of melanoma excision History of endometrial ablation Hx of prior ablation treatment Hx of toe surgery Hx of wisdom tooth extraction Hx of melanoma excision Social History Smoking Status: Never smoker alcohol intake: never substance use type: does not use caffeine: Yes what type of physical activity do you participate in: walking, running, bicycling, aerobics and weight training frequency: 3-4 times per week seatbelt use: always do you feel safe at home: Yes additional social history: Nini ANDREWS at [employer] Patient is an EF[employer] Review of Systems (Anesthesia) ROS Narrative System reviewed and no additional complaints, except as documented.
--- NOTE | 2024-06-23 07:31 | BI_ITS ---
PROCEDURE: BREAST BIOPSY SPECIMEN 06/23/2024 REASON FOR EXAM: Right breast mass. Mass was localized for surgical removal. Document whether mass is present in the specimen. TECHNIQUE: Specimen radiograph was obtained. COMPARISON: Mammogram dated 05/09/2024 and a stereo biopsy dated 06/01/2024 BI/Breast Biopsy Specimen IMPRESSION: There is a cluster of amorphous, round and punctate calcifications within the s pecimen. There is a radiopaque clip and a radiopaque wire. There do appear to be clear margins however pathology is pend ing. Reading Location: [id number]
[2024-06-23] MEDS: Lactated Ringers 1,000 ML 15 ML IV (07:37)
--- NOTE | 2024-06-23 08:12 | PCM.HP.STD ---
HPI - General General Date of Service: 06/23/24 HPI Narrative JUN MEADOWS, is a 53 F who presents for a stereotactic guided right breast excisional biopsy due to focal atypical ductal hyperplasia status post stereotactic breast biopsy. [facility] Medical History Post-menopausal Wears contact lenses Wears glasses Cancer Thyroid disease Non-smoker Abnormal ultrasound of breast Abnormal mammogram of right breast Melanoma in situ Home Medications ?Medication ?Instructions ?Recorded ?Last Taken ?Type cholecalciferol (vitamin D3) 25 1,000 unit PO DAILY 03/18/15 06/16/24 History mcg (1,000 unit) tablet levothyroxine 75 mcg tablet 75 mcg PO QDAY #30 tabs 06/13/24 06/23/24 Rx ibuprofen 200 mg tablet (IBU-200) 400 mg PO Q8H PRN pain 06/23/24 06/22/24 History Allergy/AdvReac Type Severity Reaction Status Date / Time No Known Allergies Allergy Verified 06/23/24 07:20 Family History Mother Asthma Hypertension High cholesterol Son Asthma Surgical History History of melanoma excision History of endometrial ablation Hx of prior ablation treatment Hx of toe surgery Hx of wisdom tooth extraction Hx of melanoma excision Social History Smoking Status: Never smoker alcohol intake: never substance use type: does not use caffeine: Yes what type of physical activity do you participate in: walking, running, bicycling, aerobics and weight training frequency: 3-4 times per week seatbelt use: always do you feel safe at home: Yes 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 social history: 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 [employer] 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 is an EFDA Vital Signs Vital Signs Vital Signs: 06/23/24 07:24 06/23/24 07:24 Temperature 97.6 F L Temperature Source Temporal Pulse Rate 71 Respiratory Rate 18 Respiratory Pattern Normal Blood Pressure 127/62 H Blood Pressure Mean 83 Blood Pressure Source Monitor Blood Pressure Position Semi-Fowlers Blood Pressure Location Left Arm Pulse Ox 99 Oxygen Delivery Method Room Air Weight Weight: 138 lb 14.259 oz Body Mass Index (BMI) 25.4 Physical Exam Narrative Previous biopsy site right breast well-healed Const oriented x3 and no apparent distress Resp normal respiratory effort Cardio regular rate GI Inspection: Negative for abdominal distention Assessment & Plan Assessment/Plan (1) Atypical ductal hyperplasia of right breast: PLAN: Plan Plan for stereotactic guided wire localization right breast excisional biopsy. Discussed procedure including but not limited to bleeding, infection, and need for further surgery. Patient no further questions this time. Elizabeth Hernandez M.D. Pager: [phone] [facility] [address] [place] [address], [address] [place] [address] Office: [phone]
--- NOTE | 2024-06-23 08:30 | BRBX_PTH ---
PATIENT: JUN MEADOWS LOC: [facility] U[place][id number] AGE/SX: 53/F ROOM: RE06/23/[address]: Dr. Elizabeth Hernandez MD : 1970 BED: DIS: 06/23/2024 SPEC #: [id number] RECD: 06/23/24 09:40 STATUS: WENDY RESue #: [id number] ANDRA: 06/23/24 08:[address]: Elizabeth Hernandez DEPT: SURGICAL PATHOLOGY RECD BY: Micheal Killian ENTERED: 06/23/24 10:06 SP TYPE: BREAST BX OTHR DR: Dr. Theresa Walden MD Tissues: A - Right breast, NOS Procedures: Immunohistochemical Stains Surgery Specimen Level IV IHC Stain ADDITIONAL HEADER OPERATION: Breast, biopsy, needle localization stereotactic wire loc excision PRE-OP DIAGNOSIS: Atypical ductal hyperplasia of right breast TISSUE SUBMITTED: A- Right breast mass *long stitch- medial, short stitch- anterior* Ischemic Time: 1 minute Fixation Time: 10.5 hours MICROSCOPIC DIAGNOSIS A. Right breast, atypical ductal hyperplasia, excisional biopsy: * Focal atypical ductal hyperplasia, focal flat epithelial atypia, scattered microcalcifications - see Comment. * Usual ductal hyperplasia, focal sclerosing adenosis. * IHC for CK5/6, Calponin, and E-cadherin support the diagnosis. COMMENT Selected slides/images were reviewed in intradepartmental consultation by Dr Iram John ([facility], [facility]). MICROSCOPIC DESCRIPTION Slides are reviewed. IHC utilized in the assessment: CK5/6 (A2,3,4,5,6,7) Calponin (A2,3,4,5,6,7) E-cadherin (A4) All matched controls reacted appropriately. These tests were developed and their performance characteristics determined by [facility]. They may not have been cleared or approved by the U.S. Food and Drug Administration. The FDA has determined that such clearance or approval is not necessary.? The above immunohistochemical/dualISH?markers are ordered and reviewed by the Pathologist. GROSS DESCRIPTION A. Received fresh in a container labeled with the patient's name, date of , and right breast mass, long stitch medial short stitch anterior is a 7.6 g, oriented excisional biopsy of fibrofatty tissue with a short stitch indicating anterior and a long stitch indicating medial margin. Protruding from the anterior/inferior margin is a metal localization wire. The specimen is 3.4 cm from anterior to posterior, 2.9 cm from superior to inferior, and 2.1 cm from medial to lateral. Ink portillo: [id number]-hgbiWqbiiggk-uiciiEsqind-dabSihzigk-whqfscYpohneis-oyacajEffjawllg-black The specimen is serially sectioned from anterior to posterior into 7 slices to reveal a circumscribed possible previous biopsy site within slices 3-7 towards the inferior/posterior aspect of the specimen. The possible previous biopsy site is filled with an adherent lockwood-orange material. A metal biopsy clip is identified within the possible biopsy site in slice 5.Biopsy site measurement: 1.4 x 0.7 x 0.6 cm. It is situated to the margins as follows:Inferior: 0.1 cmPosterior: 0.1 cmLateral: 0.5 cmMedial: 0.5 cm Anterior: 0.7 cmSuperior: 0.8 cm The surrounding fibrofatty tissue exhibits white-yellow, dense fibrous tissue. The cut surfaces are comprised of approximately 70% white fibrous tissue and 30% lockwood-yellow adipose tissue. No other mass lesion is identified. The specimen is submitted entirely as follows:A1. Slice 1 perpendicular sections of anterior marginA2. Slice 2 adjacent to biopsy siteA3. Slice 3 with biopsy site and closest inferior marginA4. Slice 4 with biopsy site and closest inferior, lateral, and medial marginsA5. Slice 5 biopsy site with area of clip to closest superior marginA6. Slice 6 with biopsy site with closest posterior marginA7. Slice 7 perpendicular sections of biopsy site to closest posterior margin Total formalin fixation time: Between 6 and 72 hours [facility] 06-23-2024 CPT:[id number]
[2024-06-23] MEDS: Cefazolin 2 GM in 0.9% Normal Saline (100mL Bag) 100 ML IV (09:00)
--- NOTE | 2024-06-23 09:31 | PCM.OPRPT ---
Operative Report (Standard) Operative Information Date of Procedure: 06/23/24 Pre-Operative Diagnosis: Right breast atypical ductal hyperplasia Post-Operative Diagnosis: Same Surgery/Procedure Performed: Right breast stereotactic wire localization excisional biopsy drapery cutter: Yes Ammonia Solution Preparer: Marina Cintron Tasks completed by executive assistant to general counsel: Opening & closing Type of Anesthesia: General/Supplemental RN Documented Start/Stop Times: Operation Date: 06/23/24 08:30 Case Time Into Pre-Op 06/23/24 07:07 Out of Pre-Op 06/23/24 08:52 Anesthesia Start 06/23/24 08:54 Into Room 06/23/24 08:54 Procedure Start 06/23/24 09:11 Procedure End 06/23/24 09:43 Anesthesia End 06/23/24 09:51 Out of Room 06/23/24 09:51 Into Recovery 06/23/24 09:53 Procedure Start Time: 09:11 Procedure Stop Time: 09:43 Select all DRAINS/GRAFTS/IMPLANTS that apply: None Special Medications: Ancef 2 g IV x 1 Estimated Blood Loss: < 10 cc Specimen collected: Yes Description of specimen(s) removed: Right breast mass Description of surgery: Patient was taken mammography for stereotactic wire localization. Clip was localized using the stereotactic prone table. Skin was prepped with Betadine, local anesthesia of 1% lidocaine was used. Wire was placed at the clip and 15 and -15 degree views were taken. Wire was confirmed at the clip. Additional 2 view mammography was also done after stereotactic wire placement. Patient was brought to operating placed spine operating table. Timeout was completed verifying correct patient, procedure, site, positioning, special, prior began procedure. General anesthesia was induced. Patient's right breast was prepped draped in a sterile fashion. A curvilinear incision was planned in such a way as to minimize the amount of dissection to reach the mass. Flaps were raised in the location of the wire confirmed. The wire was delivered into the wound. 2 silk ywyoiy-ha-dtkem stay suture was placed around the wire and used for traction. Dissection was then taken down circumferentially with electrocautery, taking care to include the entire localization needle and wide margin of grossly normal tissue. The specimen and entire localizing wire were removed. The specimen was oriented and sent to radiology. Confirmation was received that the entire target lesion and clip had been resected. The cavity was irrigated. Hemostasis was obtained with electrocautery. The breast incision was closed with interrupted sutures of 3-0 Vicryl and subcuticular sutures of 4-0 Monocryl. No attempt was made to close the space. A dressing of fluff gauze and supportive bra placed. The patient tolerated procedure well was taken to the postanesthesia care in stable condition. Surgical Findings: See operative report Complications Complications: No
--- NOTE | 2024-06-23 09:31 | EX.PCM.DISCH ---
Discharge Instructions Diet Discharge Diet: No restrictions Activity Discharge Activity: May Not Drive (while taking narcotic pain meds.) and May Shower (After 24 hours) May shower in (days): 1 Lifting Restrictions: 15 pounds for 1 week on right Dressing / Incision Call your doctor if your incision/area has: Continuous Slow Oozing, Sudden Increased Bleeding, Increased Pain/ Swelling and Increased Redness Call your doctor if you observe: Fever of 101 or Higher Suture Line Care: Avoid Pulling/Pushing and Avoid Pinching/Bending Remove Dressing in: 1 day Additional Dressing/Incision Instructions:: Remove bulky dressing tomorrow. May leave op-site dressing for 3-4 days. Okay to remove Steri-Strips from the breast incision in 7 to 10 days. Follow Up Care Please Follow Up With: Elizabeth Hernandez MD When: Please call [phone] for an appointment to be seen in 2 week. Test Results: Test results from this visit will be discussed in further detail at your follow-up appointment, if applicable. Discharge Plan Admission Attending Provider: Elizabeth Hernandez Primary Care Provider: Theresa Walden Instructions Print Language: Bengali Discharge Orders/Prescriptions Prescriptions: New tramadol 50 mg tablet 50 mg PO Q6H PRN (Reason: pain) 2 Days Qty: 5 0RF Continued cholecalciferol (vitamin D3) 1,000 UNIT tablet 1,000 unit PO DAILY ibuprofen [IBU-200] 200 mg tablet 400 mg PO Q8H PRN (Reason: pain) levothyroxine 75 mcg tablet 75 mcg PO QDAY Qty: 30 3RF Referrals / Follow Up: Theresa Walden MD [Primary Care Provider] - Disposition Disposition (needs filled in before D/C Order can be placed): Home, Self Care
[2024-06-23] MEDS: Bupiv/Epi 0.25% 30 ML Vial (09:35)
--- NOTE | 2024-06-23 09:59 | PCM.POST.ANE ---
Anesthesia: Postop Eval I Current Vital Signs Temperature: 97.5 F Pulse Rate: 80 Blood Pressure: 114/78 Respiratory Rate: 16 Pulse Ox: 98 Oxygen Delivery Method: Venturi Mask Oxygen Flow Rate (L/min): 6 Assessment Airway patent: Yes Spontaneous unlabored respirations: Yes Mental status: Calm nausea: No Vomiting: No Anesthesia Complication: No Fluid Hydration Crystalloid volume administer (ml): 1,100 Total IV fluid infused: 1,100 Progress Note Anesthesia document: Postop Eval 1 completed: Yes
--- NOTE | 2024-06-23 10:24 | POSTOPAN2_ITS ---
Anesthesia Postop Eval I Sum Postop Eval Completion status Anesthesia document: Postop Eval 1 completed: Yes Anesthesia Postop Eval I Summary Anesthesia Postop Eval I Summary: Anesthesia Postop Eval I: Assessment Summary Airway patent Yes 06/23/24 10:00 INTEGRATED PEST MANAGEMENT [email or web address] Spontaneous unlabored Yes 06/23/24 10:00 INTEGRATED PEST MANAGEMENT [email or web address] respirations Mental status Calm 06/23/24 10:00 INTEGRATED PEST MANAGEMENT [email or web address] nausea No 06/23/24 10:00 INTEGRATED PEST MANAGEMENT [email or web address] Vomiting No 06/23/24 10:00 INTEGRATED PEST MANAGEMENT [email or web address] Anesthesia Postop Eval I: Fluid Summary Crystalloid volume administer 1,100 06/23/24 10:00 INTEGRATED PEST MANAGEMENT [email or web address] (ml) Colloids volume administered ( ml) Blood Product volume administered (ml) Total IV fluid infused 1,100 06/23/24 10:00 INTEGRATED PEST MANAGEMENT [email or web address] Anesthesia Postop Eval I: Summary Notes Anesthesia Complication No 06/23/24 10:00 INTEGRATED PEST MANAGEMENT [email or web address] Anesthesia Complication Comment: Post-operative progress note Anesthesia: Postop Eval II Evaluation Mental status: Awake Pain Level: 0 nausea: No Vomiting: No
--- NOTE | 2024-06-23 10:24 | PCM.POSTANE2 ---
Anesthesia Postop Eval I Sum Postop Eval Completion status Anesthesia document: Postop Eval 1 completed: Yes Anesthesia Postop Eval I Summary Anesthesia Postop Eval I Summary: Anesthesia Postop Eval I: Assessment Summary Airway patent Yes 06/23/24 10:00 VOCATIONAL PLACEMENT SPECIALIST.[email or web address] Spontaneous unlabored Yes 06/23/24 10:00 VOCATIONAL PLACEMENT SPECIALIST.[email or web address] respirations Mental status Calm 06/23/24 10:00 VOCATIONAL PLACEMENT SPECIALIST.[email or web address] nausea No 06/23/24 10:00 VOCATIONAL PLACEMENT SPECIALIST.[email or web address] Vomiting No 06/23/24 10:00 VOCATIONAL PLACEMENT SPECIALIST.[email or web address] Anesthesia Postop Eval I: Fluid Summary Crystalloid volume administer 1,100 06/23/24 10:00 VOCATIONAL PLACEMENT SPECIALIST.[email or web address] (ml) Colloids volume administered ( ml) Blood Product volume administered (ml) Total IV fluid infused 1,100 06/23/24 10:00 VOCATIONAL PLACEMENT SPECIALIST.[email or web address] Anesthesia Postop Eval I: Summary Notes Anesthesia Complication No 06/23/24 10:00 VOCATIONAL PLACEMENT SPECIALIST.[email or web address] Anesthesia Complication Comment: Post-operative progress note Anesthesia: Postop Eval II Evaluation Mental status: Awake Pain Level: 0 nausea: No Vomiting: No
== END 2024-06-23 12:33 | disposition home or self-care (01) ==
LOC: SDC 06:57 → AC 06:59
PROVIDERS: PCP Family Medicine; Referring Provider Surgery; Visit Provider Surgery
PROC: (CPT 19125; principal; 2024-06-23 08:15)
DX: N60.21 Fibroadenosis of right breast (principal)
CPT/HCPCS: 19125; 00400; 19281; 76098; 88305; 88341; 88342; J2405

== ENCOUNTER → 2024-12-29 | Outpatient (CLI) | payer OTHER, SELFPAY ==
--- NOTE | 2024-12-29 10:15 | MRI_ITS ---
PROCEDURE: MRI/Breast Bilateral W/O and W
== END | disposition home or self-care (01) ==
LOC: OPMRI 10:13
PROVIDERS: PCP Family Medicine; Referring Provider Surgery; Visit Provider Surgery
DX: N60.91 Unspecified benign mammary dysplasia of right breast (principal)
CPT/HCPCS: 77049; A9575; A4216; C8908